=== PATIENT | male | born 1925 | race Caucasian/White ===

== ENCOUNTER 2016-12-25 12:11 | Emergency (ER) | payer MEDICARE ==
--- NOTE | 2016-12-25 12:52 | EDM.PDOC ---
ED HPI GENERAL MEDICAL PROBLEM - General Chief Complaint: Upper Extremity Injury/Pain Stated Complaint: [id number] FELL DOWN ON SAT AT HOME RIBS Time Seen by Provider: 12/25/16 12:35 Source of Information: Reports: Patient History Limitations: Reports: No Limitations - History of Present Illness INITIAL COMMENTS - FREE TEXT/NARRATIVE: This 89 yo male patient reports to the ED with left lower rib pain, left lower rib bruising and diffuse abdominal tenderness with increased gas. The patient reports he had a hard bowel movement yesterday. The patient reports he stumbled and fell on his walker on Thursday and has been experiencing increased pain since that time. The patient reports he has had increased gas pains over the past 24 hours and some shortness of breath. Onset Date: 12/20/16 Duration: Constant Location: Reports: Chest (left lower ribs), Abdomen (left upper abdomen) Quality: Reports: Ache, Dull Severity: Moderate Improves with: Reports: None Worsens with: Reports: None Associated Symptoms: Reports: No Other Symptoms Left Chest Pain Score (Numeric/FACES): 7 - Related Data Allergies Allergy/AdvReac Type Severity Reaction Status Date / Time gluten Allergy Cannot Verified 12/25/16 12:24 Remember guaifenesin [From Entex LA] Allergy Cannot Verified 12/25/16 12:24 Remember ibuprofen Allergy Anaphylactic Verified 12/25/16 12:24 Shock milk Allergy Cannot Verified 12/25/16 12:24 Remember morphine Allergy Cannot Verified 12/25/16 12:24 Remember oxycodone HCl [From Percocet] Allergy Cannot Verified 12/25/16 12:24 Remember Penicillins Allergy Cannot Verified 12/25/16 12:24 Remember phenylephrine HCl Allergy Cannot Verified 12/25/16 12:24 [From Entex LA] Remember phenylpropanolamine HCl Allergy Cannot Verified 12/25/16 12:24 [From Entex LA] Remember Home Meds: Home Meds Atenolol 75 mg PO DAILY 07/29/15 [History] Furosemide 80 mg PO BID 07/29/15 [History] Levothyroxine [Synthroid] 88 mcg PO DAILY 07/29/15 [History] Losartan [Cozaar] 50 mg PO DAILY 07/29/15 [History] Tamsulosin [Flomax] 0.4 mg PO BEDTIME 07/29/15 [History] glipiZIDE [Glipizide] 10 mg PO BID 07/29/15 [History] sitaGLIPtin Phosphate [Januvia] 50 mg PO DAILY 07/29/15 [History] Cyclobenzaprine [Flexeril] 5 mg PO TID PRN 07/30/15 [History] Potassium Chloride [Klor-Con 10] 10 meq PO BIDMEALS 08/18/15 [History] Febuxostat [Uloric] 80 mg PO DAILY 03/01/16 [History] Finasteride 5 mg PO DAILY 03/01/16 [History] Gluc 2KCl/Chondr/Jay Hy/Hy Ac [Glucosamine & Chondroitin Cap] 1 each PO BID 06/16 [History] Sennosides [Senokot] 8.6 mg PO ASDIRECTED PRN 03/03/16 [History] Warfarin Sodium [Jantoven] 5 mg PO ASDIRECTED #7 tablet 03/10/16 [Rx] Past Medical History HEENT History: Reports: Hard of Hearing Other HEENT History: Pt states that he does not see well with his new glasses Cardiovascular History: Reports: Afib, Hypertension Respiratory History: Reports: None Gastrointestinal History: Reports: None Other Gastrointestinal History: celiac disease Genitourinary History: Reports: BPH Other Genitourinary History: overactive bladder, chronic kidney disease Musculoskeletal History: Reports: Back Pain, Chronic Other Musculoskeletal History: pelvic fx Neurological History: Reports: None Psychiatric History: Reports: None Endocrine/Metabolic History: Reports: Diabetes, Type II Hematologic History: Reports: None Immunologic History: Reports: None Oncologic (Cancer) History: Reports: None Dermatologic History: Reports: None - Infectious Disease History Infectious Disease History: Reports: Other (See Below) Other Infectious Disease History: Pt unsure of childhood illnesses - Past Surgical History Cardiovascular Surgical History: Reports: None Respiratory Surgical History: Reports: None GI Surgical History: Reports: Hernia Repair/Other Male Surgical History: Reports: None Neurological Surgical History: Reports: None Musculoskeletal Surgical History: Reports: Knee Replacement Social & Family History - Family History Family Medical History: Noncontributory HEENT: Reports: None Cardiac: Reports: CAD Respiratory: Reports: None GI: Reports: Celiac Disease : Reports: None OBGYN: Reports: None Musculoskeletal: Reports: Arthritis Neurological: Reports: Seizure Psychiatric: Reports: None Endocrine/Metabolic: Reports: Diabetes, type II Hematologic: Reports: Other (See Below) Other Hematologic Family History: Leten 5 clotting disorder Immunologic: Reports: None Oncologic: Reports: None - Tobacco Use Smoking Status *Q: Never Smoker Second Hand Smoke Exposure: Yes - Caffeine Use Caffeine Use: Reports: Coffee, Soda - Recreational Drug Use Recreational Drug Use: No - Living Situation & Occupation Living situation: Reports: , Alone, Assisted Living Occupation: Retired Review of Systems - Review of Systems Review Of Systems: ROS reveals no pertinent complaints other than HPI. ED EXAM, GENERAL - Physical Exam Exam: See Below Exam Limited By: No Limitations General Appearance: Alert, WD/WN, Moderate Distress Eye Exam: Bilateral Eye: EOMI, Normal Inspection, PERRL Ears: Normal External Exam, Normal Canal, Hearing Grossly Normal, Normal TMs Nose: Normal Inspection, Normal Mucosa, No Blood Throat/Mouth: Normal Inspection, Normal Lips, Normal Teeth, Normal Gums, Normal Oropharynx, Normal Voice, No Airway Compromise Head: Atraumatic, Normocephalic Neck: Normal Inspection, Supple, Non-Tender, Full Range of Motion Respiratory/Chest: No Respiratory Distress, Normal Breath Sounds, No Accessory Muscle Use, Decreased Breath Sounds (left lung), Other (left lower ribs) Cardiovascular: Normal Peripheral Pulses, No Edema, No Gallop, No JVD, No Murmur , No Rub, Irregularly Irregular GI/Abdominal: Tender, Other (hematoma left upper quadrant) (Male) Exam: Deferred Rectal (Males) Exam: Deferred Back Exam: Normal Inspection, Full Range of Motion, NT Extremities: Normal Inspection, Normal Range of Motion, Non-Tender, Normal Capillary Refill, No Pedal Edema Neurological: Alert, Oriented, CN II-XII Intact, Normal Cognition, Normal Gait, Normal Reflexes, No Motor/Sensory Deficits Psychiatric: Normal Affect, Normal Mood Skin Exam: Warm, Dry, Intact, Normal Color, No Rash Lymphatic: No Adenopathy Course - Vital Signs Last Recorded V/S: Last Vital Signs Temp 36.8 C 12/25/16 14:49 Pulse 88 12/25/16 14:49 Resp 18 12/25/16 14:49 BP 156/72 H 12/25/16 14:49 Pulse Ox 93 L 12/25/16 14:49 - Orders/Labs/Meds Orders: Active Orders 24 hr Category Date Time Status B-TYPE NATRIURETIC PEPTIDE,BNP [CHEM] Stat Lab 12/25/16 14:46 Ordered Labs: Laboratory Tests 12/25/16 12/25/16 12/25/16 Range/Units 12:46 12:46 12:46 WBC 9.1 (5.0-10.0) 10^3/uL RBC 4.15 L (4.6-6.2) 10^6/uL Hgb 12.8 L (14.0-18.0) g/dL Hct 39.3 L (40.0-54.0) % MCV 94.7 (80-100) fL MCH 30.8 (27.0-34.0) pg MCHC 32.6 L (33.0-35.0) g/dL Plt Count 103 L (150-450) 10^3/uL Neut % (Auto) 82.6 H (42.2-75.2) % Lymph % (Auto) 6.5 L (20.5-50.1) % [place] % (Auto) 10.1 H (2-8) % Eos % (Auto) 0.7 L (1.0-3.0) % Baso % (Auto) 0.1 (0.0-1.0) % PT 33.5 H (9.0-12.0) SEC INR 3.3 H (0.9-1.2) Sodium 142 (135-145) mmol/L Potassium 3.7 (3.6-5.0) mmol/L Chloride 99 L (101-111) mmol/L Carbon Dioxide 30.0 (21.0-31.0) mmol/L Anion Gap 16.7 BUN 40 H (7-18) mg/dL Creatinine 1.9 H (0.6-1.3) mg/dL Est Cr Clr Drug Dosing 25.50 mL/min Estimated GFR (MDRD) 34 BUN/Creatinine Ratio 21.05 Glucose 283 H (74-105) mg/dL Calcium 8.7 (8.4-10.2) mg/dl Total Bilirubin 1.4 H (0.2-1.0) mg/dL AST 16 (10-42) IU/L ALT 15 (10-60) IU/L Alkaline Phosphatase 71 (42-121) IU/L Total Protein 6.9 (6.7-8.2) g/dl Albumin 3.6 (3.2-5.5) g/dl Globulin 3.3 Albumin/Globulin Ratio 1.09 Departure - Departure Time of Disposition: 15:10 Disposition: DC/Tfer to Acute Hospital 02 Condition: Poor Clinical Impression: Pleural effusion, left - Discharge Information Forms: Interfacility Transfer EMTALA Care Plan Goals: Discussed the history, examination, lab and CT results with Dr. Ordonez ([facility] in [place]). Dr. Ordonez accepted the patient for continued evaluation and further management. The patient will be transported by [facility]. - My Orders Last 24 Hours: My Active Orders 12/25/16 14:46 B-TYPE NATRIURETIC PEPTIDE,BNP [CHEM] Stat - Assessment/Plan Last 24 Hours: My Active Orders 12/25/16 14:46 B-TYPE NATRIURETIC PEPTIDE,BNP [CHEM] Stat
--- NOTE | 2016-12-25 14:33 | CT ---
CLINICAL HISTORY: 89-year-old 215 pound diabetic male who fell on walker injuring his left side this weekend (several days ago). Rule out hematoma or intraperitoneal bleed in this patient with left-si ded pain who is anticoagulated. SCAN TECHNIQUE: Volume acquisition of data from an emergency unenhanced CT scan chest, abdomen and p to obtained without oral or IV contrast while the patient was lying supine on the Siemens multisl ice scanner [place], [place]. All data archived in the PAC system for storage, reformatting and study. INTERPRETATION: 1. Cardiomegaly. Huge pleural effusion filling most of the left hemithorax (small dependent effusion on the right) with underlying lobar collapse to the left hilum, midline. No obvious rib fractures. No pneumothorax. 2. Osteoporosis, multilevel disc disease and marginal spur formation thoracolumbar spine. No fractur es or dislocation. 3. Densely calcified ectatic thoracic/abdominal aorta and major branches without sign of aneurysm or dissection. 4. Huge 7.5 cm diameter round exophytic lower pole cyst right kidney. Generalized renal cortical man tle" thinning" and a second smaller 1.7 cm diameter exophytic cyst lower pole of the contralateral l eft kidney. No nephrolithiasis or signs of obstructive uropathy. Uniformly thick bladder wall and he terogeneously dense enlarged prostate gland with calcifications. 5. Fluid-filled inguinal hernia on the right. No incarcerated bowel or signs of mechanical bowel obs truction. 6. Diverticula sigmoid colon without associated signs of inflammation. Normal appendix RLQ. 7. Diseased gallbladder, i.e., distended and filled with stones/"sludge". Liver, stomach, spleen, pa ncreas unremarkable. NOTE: No sign of subcutaneous or retroperitoneal hematoma. No ascites. CONCLUSION: Cardiomegaly and bibasilar effusions (largest on the left). Bilateral lower pole renal c ysts and abnormal prostate gland. Right inguinal hernia. Sigmoid diverticulosis. Disease gallbladder .
[2016-12-25 14:49] VITALS: BP 156/72
== END 2016-12-25 15:42 ==
LOC: DL.ED 12:11
DX: J90 Pleural effusion, not elsewhere classified (principal); I48.91 Unspecified atrial fibrillation; K90.0 Celiac disease; I12.9 Hypertensive chronic kidney disease with stage 1 through stage 4 chronic kidney disease, or unspecified chronic kidney disease; N18.9 Chronic kidney disease, unspecified; E11.9 Type 2 diabetes mellitus without complications; R06.02 Shortness of breath; W18.39XA Other fall on same level, initial encounter; Y92.019 Unspecified place in single-family (private) house as the place of occurrence of the external cause; Z79.899 Other long term (current) drug therapy; Z88.0 Allergy status to penicillin; Z88.8 Allergy status to other drugs, medicaments and biological substances
CPT/HCPCS: 36415; 71250; 74176; 80053; 83880; 85025; 85610; 99284; 99285